=== PATIENT | male | born 1935 | race Caucasian/White ===

== ENCOUNTER → 2017-05-15 | Outpatient (CLI) | payer MEDICARE, BC ==
[~2017-05-15] MED LIST: ASPIRIN PO; ASPIRINEC PO; BENAZEPRIL PO; LIPITOR PO; LOTENSIN HCT 101 TA1 PO; LOTENSIN HCT 101 TAB PO; MULTI-VITAMIN1 TAB PO; PLAVIX PO
== END | disposition home or self-care (01) ==
LOC: CECH 09:26
DX: R94.31 Abnormal electrocardiogram [ECG] [EKG] (principal); I49.9 Cardiac arrhythmia, unspecified; I36.1 Nonrheumatic tricuspid (valve) insufficiency; I35.1 Nonrheumatic aortic (valve) insufficiency; I34.0 Nonrheumatic mitral (valve) insufficiency; I70.90 Unspecified atherosclerosis; I70.0 Atherosclerosis of aorta; I51.7 Cardiomegaly
CPT/HCPCS: 93306